=== PATIENT | male | born 1995 | race African-American/Black ===

== ENCOUNTER 2017-11-11 17:40 | Emergency (ER) | payer SELFPAY ==
[2017-11-11 18:19] VITALS: BP 155/74
--- NOTE | 2017-11-11 19:37 | RADIOLOGY REPORT (SQ) ---
EXAM DESCRIPTION: CHEST 2 VIEWS COMPLETED DATE/TIME: 11/11/2017 7:27 pm REASON FOR STUDY: cp COMPARISON: None. EXAM PARAMETERS: NUMBER OF VIEWS: two views TECHNIQUE: Digital Frontal and Lateral radiographic views of the chest acquired. RADIATION DOSE: NA LIMITATIONS: none FINDINGS: LUNGS AND PLEURA: No opacities, masses or pneumothorax. No pleural effusion. MEDIASTINUM AND HILAR STRUCTURES: No masses or contour abnormalities. HEART AND VASCULAR STRUCTURES: Heart normal size. No evidence for failure. BONES: No acute findings. HARDWARE: None in the chest. OTHER: No other significant finding. IMPRESSION: NO ACUTE RADIOGRAPHIC FINDING IN THE CHEST. TECHNICAL DOCUMENTATION: JOB ID: [id number] [employer]- All Rights Reserved Reading location - IP/workstation name: [email or web address]
--- NOTE | 2017-11-11 20:43 | ER Document Report ---
ED General - General Chief Complaint: Chest Pain Stated Complaint: CHEST PAIN Time Seen by Provider: 11/11/17 19:16 - HPI Patient complains to provider of: Sharp chest pain Notes: Patient coming in for complaint of sharp chest pain. Patient states has history of arrhythmias and valvular stenosis. Patient otherwise denies any past medical history denies any travel denies any syncope denies any nausea vomiting fever chills diarrhea states some of the pain is reproduced with some movements of his left shoulder and of his torso. Patient also states of the pain is reproduced with palpation. Denies any recent travel resting healthy upon my evaluation. - Related Data Allergies/Adverse Reactions: aspirin Allergy (Verified 11/11/17 19:16) Past Medical History - Social History Smoking Status: Never Smoker Chew tobacco use (# tins/day): No Frequency of alcohol use: daily drinker up until a month ago Drug Abuse: None Family History: Reviewed & Not Pertinent Patient has suicidal ideation: No Patient has homicidal ideation: No Renal/ Medical History: Denies: Hx Peritoneal Dialysis Review of Systems - Review of Systems Constitutional: No symptoms reported EENT: No symptoms reported Cardiovascular: Chest pain Respiratory: No symptoms reported Gastrointestinal: No symptoms reported Genitourinary: No symptoms reported Male Genitourinary: No symptoms reported Musculoskeletal: No symptoms reported Skin: No symptoms reported Hematologic/Lymphatic: No symptoms reported Neurological/Psychological: No symptoms reported Physical Exam - Vital signs Vitals: Temp Pulse Resp BP Pulse Ox 98.6 F 70 18 155/74 H 99 11/11/17 18:18 11/11/17 18:18 11/11/17 18:18 11/11/17 18:18 11/11/17 18:18 Interpretation: Normal - General General appearance: Appears well, Alert - HEENT Head: Normocephalic, Atraumatic Eyes: Normal Pupils: PERRL - Respiratory Respiratory status: No respiratory distress Chest status: Tender - Chest pressure patient with reproducible tenderness along palpation of the coracoid process and also alongLeft sternal border also along the inferior margin of the ribs the lateral left ribs along the pectoralis major insertion points patient does have some pain is reproduced with external rotation of the shoulder and elevation of the shoulder above the 90 mallory 100 Breath sounds: Normal Chest palpation: Normal - Cardiovascular Rhythm: Regular Heart sounds: Normal auscultation Murmur: No - Abdominal Inspection: Normal Distension: No distension Bowel sounds: Normal Tenderness: Nontender Organomegaly: No organomegaly - Back Back: Normal, Nontender - Extremities General upper extremity: Normal inspection, Nontender, Normal color, Normal ROM , Normal temperature General lower extremity: Normal inspection, Nontender, Normal color, Normal ROM , Normal temperature, Normal weight bearing. No: Guicho's sign - Neurological Neuro grossly intact: Yes Cognition: Normal Orientation: AAOx4 Orient Coma Scale Eye Opening: Spontaneous Orient Coma Scale Verbal: Oriented Joanne Coma Scale Motor: Obeys Commands Orient Coma Scale Total: 15 Speech: Normal Motor strength normal: LUE, RUE, LLE, RLE Sensory: Normal - Psychological Associated symptoms: Normal affect, Normal mood - Skin Skin Temperature: Warm Skin Moisture: Dry Skin Color: Normal Course - Re-evaluation Re-evalutation: 11/11/17 20:43 The patient has atypical chest pain as the patient's chest pain is not suggestive of pulmonary embolus, cardiac ischemia, aortic dissection, or other serious etiology. Given the extremely low risk of these diagnoses further testing and evaluation for these possibilities does not appear to be indicated at this time. The patient has been instructed to return if the symptoms worsen or change in any way. Patient presentation is very consistent with chest wall pain. Patient was discharged on follow-up primary care physician. Patient was given Tylenol Motrin to take. Patient is has taken Motrin in the past. - Vital Signs Vital signs: Temp Pulse Resp BP Pulse Ox 98.6 F 70 18 155/74 H 99 11/11/17 18:18 11/11/17 18:18 11/11/17 18:18 11/11/17 18:18 11/11/17 18:18 Discharge - Discharge Clinical Impression: Strain of left pectoralis muscle Qualifiers: Encounter type: initial encounter Qualified Code(s): S29.011A - Strain of muscle and tendon of front wall of thorax, initial encounter Condition: Good Disposition: HOME, SELF-CARE Instructions: Chest Wall Pain ([facility]), Muscle Strain ([facility]) Additional Instructions: Your chest x-ray today she is no signs of acute fracture infection in your lungs or any abnormality with the size of your heart. However recommend she follow-up with your primary care physician. Your EKG again today also does not show any signs of arrhythmia. Do believe with your physical examination in the tenderness that I am able to induce to have a pack major sprain. Please take Tylenol and Motrin for your pain control return to ER symptoms worsen. Prescriptions: Ibuprofen [Motrin 600 mg Tablet] 600 mg PO Q8HP PRN #21 tablet PRN Reason:
--- NOTE | 2017-11-11 22:08 | EKG REPORT ---
SEVERITY:- NORMAL ECG - SINUS RHYTHM : Confirmed by: Imelda Mathur MD 11-Nov-2017 22:07:47
== END 2017-11-11 20:00 | disposition home or self-care (01) ==
LOC: ER 17:40
DX: S29.011A Strain of muscle and tendon of front wall of thorax, initial encounter (principal); R07.89 Other chest pain; X58.XXXA Exposure to other specified factors, initial encounter; Z86.79 Personal history of other diseases of the circulatory system; Z88.6 Allergy status to analgesic agent
CPT/HCPCS: 71046; 93005; 93010; 99285